=== PATIENT | female | born 2000 | race Caucasian/White ===

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

== ENCOUNTER 2022-01-31 14:46 | Outpatient (CLI) | payer OTHER | END 2022-01-31 16:04 | disposition home or self-care (01) | LOC: GENOP 14:46 | DX: O47.02 False labor before 37 completed weeks of gestation, second trimester (principal); O99.891 Other specified diseases and conditions complicating pregnancy; M54.9 Dorsalgia, unspecified; Z3A.25 25 weeks gestation of pregnancy | CPT/HCPCS: 81001; 82731; G0463 ==